=== PATIENT | female | born 1955 | race Caucasian/White ===

== ENCOUNTER 2018-10-21 10:56 | Emergency (ER) | payer MEDICARE ==
[~2018-10-21] VITALS: Ht 167.6 cm; Wt 48.4 kg
[2018-10-21 11:03] VITALS: BP 157/100; PULSE 107; RESP 19; Ht 167.6 cm; Wt 48.4 kg
[2018-10-21] MEDS ORDERED: ONDANSETRON (ODT) 4 MG TAB ODT STA (12:12)
[2018-10-21] MEDS ORDERED: HYDROCODONE/APAP (5/325) TAB PO ONE (12:30)
[2018-10-21] MEDS ORDERED: DEXAMETHASONE 10 MG/ML 1 ML INJ IM ONE (12:30)
[2018-10-21] MEDS ORDERED: ARIPIPRAZOLE 10 MG TAB PO ONE (12:30)
--- NOTE | 2018-10-21 16:03 | ERD ---
ER Documentation Chief Complaint Chief Complaint EXCRUCIATING BACK PAIN-MENTIONED SHE IS FOR SURGERY-RUPTURE DISK; DEPRESSED HPI 63-year-old female presenting with back pain. Patient states that she [place] [facility] [place] to have a [place] yesterday for her back pain however there is complications with her insurance. Patient states that she stopped working at her employer the beginning of the month and lost her insurance. She applied for [employer] however her insurance coverage will not going to effect for another 2 weeks. Patient states she has not been able to fill her pain medication and she is not able to afford it. Patient also states that she has not taken Abilify and is feeling depressed. Patient is, not currently feeling suicidal. Patient states that she is excruciating pain and needs some relief. She is waiting to be seen by Dr. Eason. Denies other medical problems. NKDA. Surgical history denies. Social history denies ROS All systems reviewed and are negative except as per history of present illness. Allergies Allergies: Coded Allergies: No Known Allergy (Unverified , 10/21/18) PMhx/Soc Hx Miscellaneous Medical Probl: Yes (ruptured disk) Hx Alcohol Use: No Hx Substance Use: No Hx Tobacco Use: No Smoking Status: Never smoker FmHx Family History: No diabetes, No coronary disease, No other Physical Exam Vitals Vital Signs Date Temp Pulse Resp B/P (MAP) Pulse Ox O2 O2 Flow FiO2 Time Delivery Rate 10/21/18 98.7 107 19 157/100 96 11:03 (119) Physical Exam GENERAL: The patient is well-appearing, well-nourished, in no acute distress CHEST: Clear to auscultation bilaterally. There are no rales, wheezes or rhonchi. HEART: Regular rate and rhythm. No murmurs, clicks, rubs or gallops. ABDOMEN:Soft, nontender and nondistended. Good bowel sounds. No rebound or guarding. No gross peritonitis. No gross organomegaly or masses. BACK: No midline or flank tenderness. Tender palpation over the lumbar spine. EXTREMITIES: Equal pulses bilaterally. There is no peripheral clubbing, cyanosis or edema. No focal swelling or erythema. Full range of motion. Grossly neurovascularly intact. NEUROLOGIC: Alert and oriented. Cranial nerves II through XII intact. Motor strength in all 4 extremities with 5 out of 5 strength. Sensation grossly intact. Normal speech and gait. SKIN: There is no apparent rash or petechiae. The skin is warm and dry. Results 24 hrs Current Medications Medications Dose Sig/Alfa Start Time Status Last (Trade) Ordered Route PRN Stop Time Admin Dose Reason Admin 1 tab ONCE ONCE 10/21/18 DC 10/21/18 Acetaminophen PO 12:30 12:27 / 10/21/18 12:31 Hydrocodone Bitart ([place] (5/325)) Ondansetron 4 mg ONCE STAT 10/21/18 DC 10/21/18 HCl (Zofran ODT 12:12 12:27 Odt) 10/21/18 12:14 10 mg ONCE ONCE 10/21/18 DC 10/21/18 Dexamethasone IM 12:30 12:27 (Decadron) 10/21/18 12:31 10 mg ONCE ONCE 10/21/18 DC 10/21/18 Aripiprazole PO 12:30 12:26 (Abilify) 10/21/18 12:31 Procedures/MDM ER course: Decadron, [place] and Abilify given in ED. We attempted to get insurance coverage for patient however suddenly patient came very agitated and stormed out of the ER stating that "we are not helping her". MDM: 63-year-old female presented with back pain. Patient was being attended to when she suddenly became very agitated. Patient was not discharged with pain medications or prescriptions as she eloped from the emergency room prior to completion of her visit. Patient denied suicidal thoughts. Patient will follow up with [facility] Condition: PANCHO Hawley PA-C October 21, 2018 16:03
== END 2018-10-21 13:34 | disposition left against medical advice (07) ==
LOC: FTE 10:56
DX: M54.9 Dorsalgia, unspecified (principal)
CPT/HCPCS: 96372; 99284; J0400; J1100